=== PATIENT | female | born 1985 | race Caucasian/White ===

== ENCOUNTER 2017-06-22 04:08 | Emergency (ER) | payer SELFPAY ==
[~2017-06-22] VITALS: Ht 162.6 cm; Wt 58.1 kg
[~2017-06-22 04:08] MED LIST: ACHD5005 PO; ACYC800T PO; AMOX500C2 PO; CEPH-507 PO; CEPH500C PO; IBP800T PO; KETO75CA PO; NO HOME MEDS; PHEN-640 PO; SULF-222 PO; TRM50T PO
--- OUTSIDE RECORDS SUMMARY | 2017-06-22 04:15 | XMS REPORT | Continuity Of Care Document ---
Author [facility] Address [address] [facility] [place] [address] Phone Care Team Providers Care Spreader Name Role Phone UNASSIGNED, ED PHYSICIAN Unavailable Unavailable ROSITA CASH, FAROOQ Roberts AT Results Lab Results Visit/Account #[id number] (October 03, 2015 2:07pm - October 03, 2015 3:53pm) Test Result Date/Time 17319-4: COMPLETE BLOOD COUNT WITH DIFF WHITE BLOOD COUNT(4.0-11.0 10E3/UL) 5.2 10E3/UL October 03, 2015 3:00pm RED BLOOD COUNT(4.00-5.20 10E6/UL) 4.67 10E6/UL October 03, 2015 3:00pm HEMOGLOBIN(12.0-16.0 G/DL) 14.1 G/DL October 03, 2015 3:00pm HEMATOCRIT(36.0-46.0 %) 40.9 % October 03, 2015 3:00pm MEAN CORPUSCULAR VOLUME(82.0-100.0 FL) 87.6 FL October 03, 2015 3:00pm 93053-5: MEAN CORPUSCULAR HEMOGLOBIN(26.0-34.0 PG) 30.2 PG October 03, 2015 3:00pm MEAN CORPUSCULAR HGB CONC(31.5-36.5 G/DL) 34.5 G/DL October 03, 2015 3:00pm RED CELL DISTRIBUTION WIDTH(11.5-14.5 %) 13.2 % October 03, 2015 3:00pm 777-3: PLATELET COUNT(150-450 10E3/UL) 295 10E3/UL October 03, 2015 3:00pm MEAN PLATELET VOLUME(8.2-12.4 FL) 10.1 FL October 03, 2015 3:00pm 770-8: NEUTROPHILS % (AUTO)(40-70 %) 52 % October 03, 2015 3:00pm LYMPHOCYTES % (AUTO)(15-45 %) 29 % October 03, 2015 3:00pm 5905-5: MONOCYTES % (AUTO)(2-10 %) 11 % October 03, 2015 3:00pm 713-8: EOSINOPHILS % (AUTO)(0-6 %) 7 % October 03, 2015 3:00pm 706-2: BASOPHILS % (AUTO)(0-1 %) 1 % October 03, 2015 3:00pm 33763-6: IMMATURE GRANS % (AUTO)(0-0 %) 0 % October 03, 2015 3:00pm NUCLEATED RBCS (AUTO)(0-0 %) 0 % October 03, 2015 3:00pm 751-8: NEUTROPHILS # (AUTO)(2.5-7.5 10E3/UL) 2.7 10E3/UL October 03, 2015 3:00pm 87577-5: LYMPHOCYTES # (AUTO)(1.0-4.0 10E3/UL) 1.5 10E3/UL October 03, 2015 3:00pm 742-7: MONOCYTES # (AUTO)(0.2-0.8 10E3/UL) 0.6 10E3/UL October 03, 2015 3:00pm 711-2: EOSINOPHILS # (AUTO)(0.0-0.4 10E3/UL) 0.3 10E3/UL October 03, 2015 3:00pm 704-7: BASOPHILS # (AUTO)(0.0-0.2 10E3/UL) 0.1 10E3/UL October 03, 2015 3:00pm IMMATURE GRANS # (AUTO)(0.0-0.0 10E3/UL) 0.0 10E3/UL October 03, 2015 3:00pm DIFF TYPE AUTOMATED October 03, 2015 3:00pm 75885-4: COMPLETE METABOLIC PROFILE GLUCOSE(70-110 MG/DL) 93 MG/DL October 03, 2015 3:00pm BLOOD UREA NITROGEN(6-20 MG/DL) 13 MG/DL October 03, 2015 3:00pm CREATININE(0.50-1.20 MG/DL) 0.79 MG/DL October 03, 2015 3:00pm 65943-7: EST GLOMERULAR FILTRATION RATE(Greater than or equal to 60) Greater than or equal to 60 Result Comments: If the patient is of -[place] descent/extraction multiply the eGFR value by 1.212 to obtain the actual eGFR. >=60 mg/dL Normal 30-59 mg/dL Moderate Kidney Disease 15-29 mg/dL Severe Kidney Disease <15 mg/dL Kidney Failure October 03, 2015 3:00pm BUN CREATININE RATIO(10.0-20.0 RATIO) 16.0 RATIO October 03, 2015 3:00pm SODIUM(135-145 MMOL/L) 137 MMOL/L October 03, 2015 3:00pm POTASSIUM(3.6-5.0 MMOL/L) 3.3 MMOL/L October 03, 2015 3:00pm CHLORIDE(101-111 MMOL/L) 106 MMOL/L October 03, 2015 3:00pm 2027-9: CO2(21-31 MMOL/L) 21.0 MMOL/L October 03, 2015 3:00pm 62433-4: ANION GAP(8-18) 13 October 03, 2015 3:00pm OSMO CALCULATED(270.0-290.0) 273.6 October 03, 2015 3:00pm CALCIUM(8.5-10.5 MG/DL) 9.1 MG/DL October 03, 2015 3:00pm BILIRUBIN,TOTAL(0.1-1.2 MG/DL) 0.8 MG/DL October 03, 2015 3:00pm ALKALINE PHOSPHATASE(42-121 IU/L) 72 IU/L October 03, 2015 3:00pm ASPARTATE AMINO TRANSFERASE(10-42 IU/L) 71 IU/L October 03, 2015 3:00pm ALANINE AMINOTRANSFERASE(10-60 IU/L) 145 IU/L October 03, 2015 3:00pm 18091-6: TOTAL PROTEIN(6.4-8.2 G/DL) 7.6 G/DL October 03, 2015 3:00pm ALBUMIN(3.5-5.5 G/DL) 4.1 G/DL October 03, 2015 3:00pm 2336-6: GLOBULIN(2.4-3.6) 3.5 October 03, 2015 3:00pm ALBUMIN/GLOBULIN RATIO(0.9-1.8 RATIO) 1.2 RATIO October 03, 2015 3:00pm 3040-3: LIPASE 3040-3: LIPASE(22-51 U/L) 24 U/L October 03, 2015 3:00pm SERUM HCG, QUALITATIVE 2110-5: SERUM HCG, QUALITATIVE(NEGATIVE) NEGATIVE October 03, 2015 3:00pm Allergies and Adverse Reactions Allergies and Adverse Reactions Patient Unit Number: [id number] No allergies recorded. Problem List Problem List Visit/Account #[id number] (October 03, 2015 2:07pm - October 03, 2015 3:53pm) Acute Problems: Code/Condition Comments Documented Start Date Documented Resolved Date Code (s) Viral gastroenteritis ICD10: A08.4 Viral gastroenteritis ICD9: 008.8 Viral gastroenteritis SNOMED: 180240703 Viral gastroenteritis Plan of Care Plan Of Care Visit/Account #[id number] (October 03, 2015 2:07pm - October 03, 2015 3:53pm) Patient Instructions Follow with primary care DrParris in 3-5 days. Drink a lot of oral fluids. Liquid diet for 24 hours. Return to the emergency room if symptoms worsens or has any concern. Take zofran as needed prn nausea/vomiting. Vital Signs Vital Signs Visit/Account #[id number] (October 03, 2015 2:07pm - October 03, 2015 3:53pm) Sign First Result Last Result Code(s) Temperature in Fahrenheit Temperature (Fahrenheit): 97.2 [degF] On October 03, 2015 2:05pm Temperature (Fahrenheit): 97.3 [degF] On October 03, 2015 3:30pm 8310-5 Body Temperature Weight in Kilograms Weight (Kilograms): 59.09 kg On October 03, 2015 2:05pm 3141-9 Weight Measured 84058-8 Body weight measured in kilograms Functional Status Functional and Cognitive Status No Functional Status Data Medications Inpatient/Ordered Medications - Medications administered during hospital visit Visit/Account #[id number] (October 03, 2015 2:07pm - October 03, 2015 3:53pm) Medication Route Sig/Schedule Precondition/Indication Comments/Instructions Codes IV Medication Carriers: NORMAL SALINE(SODIUM CHLORIDE) 1000 ML INJECTION Dose: 1000 ML INTRAVEN .Q1H (Rate: 1000 MLS/HR Duration: 1 HR) Carriers: Sodium Chloride 0.154 MEQ/ML Injectable Solution (RxNorm): 975960 NORMAL SALINE (SODIUM CHLORIDE) NDC: 25104449557 ZOFRAN INJ(ONDansetron HCL) 4 MG/2 ML INJECTION Dose: 2 ML INTRAVEN NOW Label Comments: SLOW IV PUSH MAY INCREASE FALL RISK Ondansetron 2 MG/ML Injectable Solution (RxNorm): 076862 ZOFRAN INJ (ONDansetron HCL) NDC: 46062726899 K-DUR(POTASSIUM CHLORIDE) 20 MEQ TAB Dose: 40 MEQ ORAL NOW Label Comments: TAKE WITH FOOD TO AVOID GI UPSET Potassium Chloride 20 MEQ Extended Release Oral Tablet [Klor-Con] (RxNorm): 933222 K-DUR (POTASSIUM CHLORIDE) NDC: 68233693135 Discharge Medications - Medications that patient should continue to take. Review with physician Visit/Account #[id number] (October 03, 2015 2:07pm - October 03, 2015 3:53pm) Medication Route Sig/Schedule Precondition/Indication Comments/Instructions Codes ZOFRAN ODT(ONDansetron) 4 MG/UDTABLET TAB.RAPDIS Dose: 4 MG ORAL EVERY 4 HOURS NAUSEA/VOMITING Ondansetron 4 MG Disintegrating Oral Tablet [Zofran] (RxNorm): 282894 ZOFRAN ODT (ONDansetron) NDC: 99224504832 History Of Encounters Encounters Visit/Account #[id number] (October 03, 2015 2:07pm - October 03, 2015 3:53pm) Account Status Physican Of Record Reason For Visit Visit Diagnosis Start Date/Time Stop Date/Time ELMER BECKER MD VOMIT,RAPID HR 136 Not Available Oct 03, 2015 2:07pm Oct 03, 2015 3:53pm History of Procedures Procedure List No procedures recorded. Discharge Instructions Discharge Instructions Visit/Account #[id number] (October 03, 2015 2:07pm - October 03, 2015 3:53pm) DISCHARGE INSTRUCTIONS Physician Documentation Social History Social History No Social History Data. Immunizations Immunizations Patient Unit Number: [id number] Immunizations No immunizations recorded.
--- OUTSIDE RECORDS SUMMARY | 2017-06-22 04:15 | XMS REPORT ---
Author Author KIANNA LOZANO Organization [employer] Address Unknown Phone Unavailable Care Team Providers Care [employer] Physical Education Teacher Name Role Phone KIANNA LOZANO CP Unavailable Allergies, Adverse Reactions, Alerts Substance Reaction Event Type N.K.D.A. Info Not Available Non Drug Allergy Problems Problem Type Condition Code Onset Dates Condition Status Assessment Encounter for well woman exam with routine gynecological exam Z01.419 Active Assessment Encounter for screening for malignant neoplasm of cervix Z12.4 Active Problem Hepatitis C antibody test positive 795.79 Active Assessment Encounter for screening breast examination Z12.39 Active Assessment Exposure to STD Z20.2 Active Assessment Screen for STD (sexually transmitted disease) Z11.3 Active Medications Medication Code System Code Instructions Start Date End Date Status Dosage Remeron [facility] [address]-06 not defined Procedures Procedure Coding System Code Date TRICHOMONAS ASSAY W/OPTIC CPT-4 48509 Jul 13, 2016 ALMONTE VAG, DNA, DIR PROBE CPT-4 56128 Jul 13, 2016 SPECIMEN HANDLING CPT-4 63863 Jul 13, 2016 No Charge CPT-4 87233 Jul 13, 2016 CULTURE, BACTERIA, OTHER CPT-4 27846 Jul 13, 2016 Preventive Care Est Pt. Age 18-39 CPT-4 42046 Jul 13, 2016 Vital Signs Date/Time: Jul 13, 2016 Cardiac Monitoring Heart Rate 88 bpm Weight 125.8 lbs Height 63.5 in BMI 21.93 Index Blood Pressure Diastolic 72 mmHg Blood Pressure Systolic 120 mmHg Results Name Result Date Reference Range Unit Abnormality Flag BACTERIAL VAGINOSIS (IN HOUSE) ----Lot # [id number] ----Exp date 20160713 ----RESULTS negative 20160713 ----Control + [id number] PAP TEST, HPV IF ASCUS ----. . [id number] TRICHOMONAS (IN HOUSE) ----TRICHOMONAS negative 20160713 ----Control + [id number] ----Lot # [id number] ----Exp date [id number] PDF Report ----PDF Report1 [facility] [id number] Summary Purpose [facility]
--- OUTSIDE RECORDS SUMMARY | 2017-06-22 04:15 | XMS REPORT ---
Author Author KIANNA LOZANO Organization [employer] Address Unknown Phone Unavailable Care Team Providers Care Carbon Printer Name Role Phone KIANNA LOZANO CP Unavailable Allergies, Adverse Reactions, Alerts Substance Reaction Event Type N.K.D.A. Info Not Available Non Drug Allergy Problems Problem Type Condition Code Onset Dates Condition Status Problem Hepatitis C antibody test positive 795.79 Active Medications Medication Code System Code Instructions Start Date End Date Status Dosage Remeron [facility] [address]-67 not defined Results No Known Results Summary Purpose [employer] Submission
--- OUTSIDE RECORDS SUMMARY | 2017-06-22 04:15 | XMS REPORT | Continuity Of Care Document ---
Author Author [facility] Organization [facility] Address [address] [place] [address] Phone Care Team Providers Care Transport Aircrewman Name Role Phone UNASSIGNED, ED PHYSICIAN Unavailable Unavailable ROSITA CASH, FAROOQ Roberts AT Results Results No results recorded. Allergies and Adverse Reactions Allergies and Adverse Reactions Patient Unit Number: [id number] No allergies recorded. Problem List Problem List Visit/Account #[id number] (August 23, 2015 3:05pm - August 23, 2015 4: 27pm) Acute Problems: Code/Condition Comments Documented Start Date Documented Resolved Date Code (s) Right ankle sprain ICD10: S93.401A Right ankle sprain ICD9: 845.00 Right ankle sprain SNOMED: 06847780 Right ankle sprain Plan of Care Plan Of Care Visit/Account #[id number] (August 23, 2015 3:05pm - August 23, 2015 4: 27pm) Patient Instructions Follow up with primary care DrParris in 1-2 weeks. Rest, ice and elevation. Take ibuprofen 600 mg by mouth 3 times a day with food for 5 days. Omkar wrap to the ankle for 2 weeks. Return to the emergency room if symptoms worsens or has any concern. Vital Signs Vital Signs Visit/Account #[id number] (August 23, 2015 3:05pm - August 23, 2015 4: 27pm) Sign First Result Last Result Code(s) Body Mass Index Body Mass Index (BMI): 49.0 kg/m2 On August 23, 2015 3:04pm 73370-2 BMI (body mass index) Body Mass Index as a Calculated Value 49.2 kg/m2 On August 23, 2015 3:04pm 12113-4 BMI (body mass index) Body Surface Area as a Calculated Value 2.28 m2 On August 23, 2015 3:04pm 3140-1 BSA (body surface area) Height (Feet/Inches) 5 [ft_us] 4 [in_us] On August 23, 2015 3:04pm Temperature in Fahrenheit Temperature (Fahrenheit): 97.8 [degF] On August 23, 2015 3:04pm Temperature (Fahrenheit): 98.0 [degF] On August 23, 2015 4:26pm 8310-5 Body Temperature Weight in Kilograms Weight (Kilograms): 130 kg On August 23, 2015 3:04pm 3141-9 Weight Measured 11681-6 Body weight measured in kilograms Functional Status Functional and Cognitive Status No Functional Status Data Medications Inpatient/Ordered Medications - Medications administered during hospital visit Visit/Account #[id number] (August 23, 2015 3:05pm - August 23, 2015 4: 27pm) Medication Route Sig/Schedule Precondition/Indication Comments/Instructions Codes MOTRIN(IBUPROFEN) 200 MG TAB Dose: 600 MG ORAL NOW Ibuprofen 200 MG Oral Tablet (RxNorm): 597548 MOTRIN (IBUPROFEN) [facility]: 02917004299 History Of Encounters Encounters Visit/Account #[id number] (August 23, 2015 3:05pm - August 23, 2015 4: 27pm) Account Status Physican Of Record Reason For Visit Visit Diagnosis Start Date/Time Stop Date/Time ELMER BECKER MD RIGHT ANKLE PAIN S93.401A: SPRAIN OF UNSPECIFIED LIGAMENT OF RIGHT ANKLE, INIT ENCNTR ICD10 Aug 23, 2015 3:05pm Aug 23, 2015 4:27pm History of Procedures Procedure List No procedures recorded. Discharge Instructions Discharge Instructions Visit/Account #[id number] (August 23, 2015 3:05pm - August 23, 2015 4: 27pm) DISCHARGE INSTRUCTIONS Physician Documentation Social History Social History No Social History Data. Immunizations Immunizations Patient Unit Number: [id number] Immunizations No immunizations recorded.
--- NOTE | 2017-06-22 04:27 | ED Cough/URI ---
General Chief Complaint: Cough/Cold/Flu Symptoms Stated Complaint: COUGH,SORE THROAT Source: patient, other Exam Limitations: no limitations History of Present Illness Time seen by provider: 04:18 Initial Comments Patient presents to ER by private conveyance with chief complaint of sore throat and cough. She says she's been difficult to swallow fluids and her throat really hurts. She's had some runny nose but no pain in the ears. She's got no shortness of breath and only a dry nonproductive cough. She stopped smoking in February. She does not use any alcohol or recreational drugs. She's had her tubes tied. She said she started having the symptoms approximately 3-4 days ago yesterday she went to the walk-in clinic at [facility] and was told she had sinus problems and given Flonase. She picked it up but does not feel that it has helped yet. She is asking for a note for work. Allergies and Home Medications Allergies Coded Allergies: No Known Drug Allergies (Unverified , 06/12/12) Home Medications Cephalexin 500 Mg Capsule, 500 MG PO QID, #28 Prescribed by: BAUTISTA RODRIGUEZ on 09/03/16 0309 Ketoprofen 75 Mg Capsule, 1 EACH PO Q8H PRN for jaw pain, #30 Ref 0 Prescribed by: JOSSELYN TREVINO on 01/17/15 0106 Phenazopyridine HCl 200 Mg Tablet, 1 TAB PO TID PRN for PAIN, #10 Prescribed by: BAUTISTA RODRIGUEZ on 09/03/16 0310 Constitutional: No chills, No diaphoresis, No fever, malaise EENTM: nose congestion, throat pain, throat swelling, No ear pain, No blurred vision, No nose pain Respiratory: cough, No phlegm, No short of breath Cardiovascular: No chest pain, No palpitations Gastrointestinal: No constipation, No diarrhea, No nausea Skin: No pruritus, No rash Psychiatric/Neurological: Denies Headache, Denies Numbness, Denies Paresthesia Past Xynpzfu-Sidcwz-Tutvkc Hx Patient Social History Alcohol Use: Denies Use Recreational Drug Use: No Smoking Status: Former Smoker Type Used: Cigarettes Recent Foreign Travel: No Contact w/Someone Who Travel: No Recent Hopitalizations: No Immunizations Up To Date Tetanus Booster (TDap): Less than 5yrs Date of Influenza Vaccine: Nov 19, 2013 Surgeries Surgeries: Tubal Ligation Reproductive System Hx Reproductive Disorders: No Sexually Transmitted Disease: No HIV/AIDS: 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 Gastrointestinal Gastrointestinal Disorders: Hepatitis Integumentary Skin/Integumentary Disorders: Psoriasis Blood Transfusions Adverse Reaction to a Blood Tr: No Family Medical History Significant Family History: No Pertinent Family Hx Physical Exam Vital Signs Vital Sign - Last 12Hours 06/22/17 04:11 Temp 97.0 Pulse 63 Resp 20 B/P (MAP) 124/81 Pulse Ox 96 O2 Delivery Room Air Capillary Refill : General Appearance: WD/WN, no apparent distress Eyes: Bilateral Eye Normal Inspection, Bilateral Eye PERRL, Bilateral Eye EOMI HEENT: PERRL/EOMI, TMs normal, pharyngeal erythema Neck: non-tender, full range of motion, supple, normal inspection Respiratory: chest non-tender, lungs clear, normal breath sounds Cardiovascular: normal peripheral pulses, regular rate, rhythm, no edema Neurologic/Psychiatric: alert, oriented x 3 Skin: normal color, warm/dry Dental Procedures: Dental I&D Progress/Results/Core Measures Results/Orders Lab Results Laboratory Tests Test 06/22/17 04:17 Range/Units Group A Streptococcus Screen NEGATIVE NEGATIVE My Orders Orders - JUANITO BENAVIDES Rapid Strep A Screen (06/22/17 04:22) Vital Signs/I&O Vital Sign - Last 12Hours 06/22/17 06/22/17 04:11 04:11 Temp 97.0 Pulse 63 Resp 20 B/P (MAP) 124/81 Pulse Ox 96 O2 Delivery Room Air Room Air Departure Impression Impression: Primary Impression: Pharyngitis Qualified Codes: J02.9 - Acute pharyngitis, unspecified Disposition: HOME, SELF-CARE Condition: Stable Departure-Patient Inst. Decision time for Depature: 04:26 Referrals: [facility] (PCP/Family) Primary Care Physician Patient Instructions: Sore Throat, Adult (DC) Add. Discharge Instructions: Drink plenty fluids and mix up a solution of salt water and gargle every 4-6 hours as needed to control your symptoms. Tylenol or Motrin are reasonable. All discharge instructions reviewed with patient and/or family. Voiced understanding. Work/School Note: Work Release Form Date Seen in the Emergency Department: Jun 22, 2017 Return to Work: Jun 23, 2017 Restrictions: No Restrictions Copy Copies To 1: DC FROST TITUS J Jun 22, 2017 04:27
[2017-06-22 04:42] VITALS: BP 124/81
== END 2017-06-22 04:42 | disposition home or self-care (01) ==
LOC: EDUNIT# 04:08 → ER 04:11
DX: J02.9 Acute pharyngitis, unspecified (principal); Z98.51 Tubal ligation status; Z87.891 Personal history of nicotine dependence; Z87.19 Personal history of other diseases of the digestive system
CPT/HCPCS: 87430; 99282

== ENCOUNTER 2017-07-23 17:16 | Emergency (ER) | payer SELFPAY ==
[~2017-07-23] VITALS: Ht 162.6 cm; Wt 71.7 kg
[2017-07-23 17:59] LABS: BASOPHILS # (AUTO) 0.1 10^3/uL (0.0-0.1); BASOPHILS % (AUTO) 1 % (0-10); EOSINOPHILS # (AUTO) 0.5 10^3/uL (0.0-0.3); EOSINOPHILS % (AUTO) 8 % (0-10); LYMPHOCYTES # (AUTO) 1.6 X 10^3 (1.0-4.0); LYMPHOCYTES % (AUTO) 24 % (12-44); MEAN CORPUSCULAR HEMOGLOBIN 31 PG (25-34); MEAN CORPUSCULAR HGB CONC 34 G/DL (32-36); MEAN CORPUSCULAR VOLUME 91 FL (80-99); MEAN PLATELET VOLUME 10.5 FL (7.4-10.4); MONOCYTES # (AUTO) 0.6 X 10^3 (0.0-1.0); MONOCYTES % (AUTO) 8 % (0-12); NEUTROPHILS % (AUTO) 59 % (42-75); PLATELET COUNT 281 10^3/uL (130-400); RED BLOOD COUNT 4.58 10^6/uL (4.35-5.85); RED CELL DISTRIBUTION WIDTH 13.7 % (10.0-14.5); WHITE BLOOD COUNT 6.7 10^3/uL (4.3-11.0)
--- NOTE | 2017-07-23 18:20 | Diagnostic Imaging Report ---
INDICATION: Cough. FINDINGS: PA and lateral chest shows the lungs to be well-aerated. There are no infiltrates or masses. Heart is not enlarged. No hilar adenopathy. No pneumothorax or pleural effusion. No bony abnormality. IMPRESSION: Normal PA and lateral chest. Dictated by: Dictated on workstation # [id number]
--- NOTE | 2017-07-23 18:23 | ED Respiratory ---
General Chief Complaint: Cough/Cold/Flu Symptoms Stated Complaint: COUGH,L SIDE PAIN IN RIBS Nursing Triage Note: AMB TO ROOM C/O COUGH FOR 4 WEEKS SAW CHC 3 WEEKS Source: patient History of Present Illness Time seen by provider: 18:19 Initial Comments This 31-year-old white female presents with persistent cough for last month. The patient has been diagnosed as having bronchitis for which she was treated with steroids briefly and apparently an antibiotic. This occurred approximately 10 days ago. Patient's cough is subsequently returned. Patient is now having pain with the coughing beneath her ribs. She denies fever chill, headache, photophobia, nausea, vomiting, shortness of breath, productive cough or hemoptysis, similar episode in the past, or other remarkable complaint. Allergies and Home Medications Allergies Coded Allergies: No Known Drug Allergies (Unverified , 06/12/12) Home Medications No Active Prescriptions or Reported Meds Constitutional: No chills, No fever EENTM: No hearing loss, No eye pain Respiratory: see HPI, cough, No short of breath Cardiovascular: No chest pain, No palpitations Gastrointestinal: No abdominal pain, No diarrhea, No nausea, No vomiting Genitourinary: no symptoms reported Musculoskeletal: no symptoms reported Skin: No change in color, No rash Psychiatric/Neurological: No Symptoms Reported Hematologic/Lymphatic: No Symptoms Reported Immunological/Allergic: no symptoms reported Past Txbnxui-Wxznqr-Jjiubh Hx Patient Social History Alcohol Use: Denies Use Recreational Drug Use: No Type Used: Cigarettes 2nd Hand Smoke Exposure: Yes Recent Foreign Travel: No Contact w/Someone Who Travel: No Recent Infectious Disease Expo: No Recent Hopitalizations: No Immunizations Up To Date Tetanus Booster (TDap): Less than 5yrs Date of Influenza Vaccine: Nov 19, 2013 Seasonal Allergies Seasonal Allergies: No Surgeries History of Surgeries: Yes Surgeries: Tubal Ligation Respiratory History of Respiratory Disorde: No Cardiovascular History of Cardiac Disorders: No Neurological History of Neurological Disord: No Reproductive System Hx Reproductive Disorders: No Sexually Transmitted Disease: No HIV/AIDS: 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 Genitourinary History of Genitourinary Disor: No Gastrointestinal History of Gastrointestinal Di: Yes Gastrointestinal Disorders: Hepatitis Musculoskeletal History of Musculoskeletal Dis: No Endocrine History of Endocrine Disorders: No HEENT History of HEENT Disorders: No Cancer History of Cancer: No Psychosocial History of Psychiatric Problem: No Integumentary History of Skin or Integumenta: Yes (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, history MRSA) Skin/Integumentary Disorders: Psoriasis Blood Transfusions History of Blood Disorders: No Adverse Reaction to a Blood Tr: No Reviewed Nursing Assessment Reviewed/Agree w Nursing PMH: Yes Family Medical History Significant Family History: No Pertinent Family Hx Physical Exam Vital Signs Vital Sign - Last 12Hours 07/23/17 17:25 Temp 98.3 Pulse 59 Resp 18 B/P (MAP) 111/74 Pulse Ox 97 O2 Delivery Room Air Capillary Refill : Less Than 3 Seconds General Appearance: WD/WN, no apparent distress Eyes: Bilateral Eye Normal Inspection HEENT: normal ENT inspection Neck: normal inspection Respiratory: lungs clear Cardiovascular: normal peripheral pulses, regular rate, rhythm Gastrointestinal: normal bowel sounds, non tender, soft Extremities: normal range of motion, non-tender, normal inspection Neurologic/Psychiatric: no motor/sensory deficits, normal mood/affect Skin: normal color, warm/dry Dental Procedures: Dental I&D Progress/Results/Core Measures Results/Orders Lab Results Laboratory Tests Test 07/23/17 17:53 Range/Units White Blood Count 6.7 4.3-11.0 10^3/uL Red Blood Count 4.58 4.35-5.85 10^6/uL Hemoglobin 14.3 11.5-16.0 G/DL Hematocrit 42 35-52 % Mean Corpuscular Volume 91 80-99 FL Mean Corpuscular Hemoglobin 31 25-34 PG Mean Corpuscular Hemoglobin Concent 34 32-36 G/DL Red Cell Distribution Width 13.7 10.0-14.5 % Platelet Count 281 130-400 10^3/uL Mean Platelet Volume 10.5 H 7.4-10.4 FL Neutrophils (%) (Auto) 59 42-75 % Lymphocytes (%) (Auto) 24 12-44 % Monocytes (%) (Auto) 8 0-12 % Eosinophils (%) (Auto) 8 0-10 % Basophils (%) (Auto) 1 0-10 % Neutrophils # (Auto) 4.0 1.8-7.8 X 10^3 Lymphocytes # (Auto) 1.6 1.0-4.0 X 10^3 Monocytes # (Auto) 0.6 0.0-1.0 X 10^3 Eosinophils # (Auto) 0.5 H 0.0-0.3 10^3/uL Basophils # (Auto) 0.1 0.0-0.1 10^3/uL My Orders Orders - YANIRA DREW MD Chest Pa/Lat (2 View) (07/23/17 17:42) Cbc With Automated Diff (07/23/17 17:42) Vital Signs/I&O Vital Sign - Last 12Hours 07/23/17 17:25 Temp 98.3 Pulse 59 Resp 18 B/P (MAP) 111/74 Pulse Ox 97 O2 Delivery Room Air Blood Pressure Mean: 86 Progress Note : Time: 18:22 Progress Note Patient's chest x-ray was clear. Patient's CBC was unremarkable. Departure Impression Impression: Primary Impression: Cough Disposition: 01 HOME, SELF-CARE Condition: Unchanged Departure-Patient Inst. Decision time for Depature: 18:22 Referrals: [facility] (PCP/Family) Primary Care Physician Patient Instructions: Cough, Adult (DC) Add. Discharge Instructions: Tussionex and prednisone as prescribed. Follow-up with [facility] on Tuesday. Return if any problems or questions. All discharge instructions reviewed with patient and/or family. Voiced understanding. Scripts No Active Prescriptions or Reported Meds YANIRA DREW MD Jul 23, 2017 18:23
[2017-07-23 18:30] VITALS: BP 114/74
== END 2017-07-23 18:31 | disposition home or self-care (01) ==
LOC: EDUNIT# 17:16 → ER 17:18
DX: R05 Cough (principal); Z87.2 Personal history of diseases of the skin and subcutaneous tissue; Z87.19 Personal history of other diseases of the digestive system; Z98.51 Tubal ligation status
CPT/HCPCS: 36415; 71020; 85025; 99283

== ENCOUNTER → 2018-06-09 | Outpatient (CLI) | payer BC ==
--- NOTE | 2018-06-09 10:34 | Diagnostic Imaging Report ---
PROCEDURE: US Hepatic (Liver). TECHNIQUE: Multiple real-time grayscale images were obtained over the right upper quadrant in various projections. INDICATION: Hepatitis C. FINDINGS: The pancreas is unremarkable. The liver is normal in size at 13.8 cm. No discrete liver mass is identified. The gallbladder is without stones or sludge. No wall thickening or biliary ductal dilatation is seen. The right kidney is unremarkable. There is no ascites. IMPRESSION: Unremarkable hepatic ultrasound. Dictated by: Dictated on workstation # [id number]
== END ==
LOC: RAD 08:57
PROVIDERS: ATTEND Pediatrics
DX: B19.20 Unspecified viral hepatitis C without hepatic coma (principal)
CPT/HCPCS: 76705